=== PATIENT | male | born 1965 | race African-American/Black ===

== ENCOUNTER 2019-02-25 17:33 | Emergency (ER) | payer OTHER ==
[~2019-02-25] VITALS: Ht 177.8 cm; Wt 60.8 kg
[2019-02-25 18:28] VITALS: BP 148/83
--- NOTE | 2019-02-25 19:07 | PHYS DOC ---
Past Medical History Past Medical History: High Cholesterol, Hypertension, Other Additional Past Medical Histor: PTSD, OCD, MDD Past Surgical History: No Surgical History Alcohol Use: Occasionally Drug Use: None Adult General Chief Complaint Chief Complaint: MECHANICAL FALL HPI HPI Patient is a 53 year old male who presents with this morning was moving furniture in the back of a [employer] when he tripped and fell forward hitting his face into the back of the [employer]. Patient denies LOC, nausea, vomiting, dizziness, visual changes, numbness or tingling, neck pain, back pain, head pain, weaknesses. His glasses he was wearing cut into the bridge of his nose and he has a superficial cut to the bridge of his nose that is approximately 1 cm long with no depth. Patient states he is up-to-date on all of his immunizations. Review of Systems Review of Systems Musculoskeletal: Facial pain. Denies back pain or joint pain [] Integument: Facial bruising. Denies rash or skin lesions [] All other systems were reviewed and found to be within normal limits, except as documented in this note. Allergies Allergies Allergies Coded Allergies Type Severity Reaction Last Updated Verified lisinopril Allergy Intermediate 09/17/18 Yes prednisone Allergy Intermediate 09/17/18 Yes primidone Allergy Intermediate 09/17/18 Yes Physical Exam Physical Exam Constitutional: Well developed, well nourished, no acute distress, non-toxic appearance. [] HENT: Normocephalic, atraumatic, bilateral external ears normal, oropharynx moist, no oral exudates, nasal swelling and tenderness. [] Eyes: PERRLA, EOMI, conjunctiva normal, no discharge. [] Neck: Normal range of motion, no tenderness, supple, no stridor. [] Skin: Under right eye bruising and tenderness. Superficial cut to bridge of nose. Warm, dry, no erythema, no rash. [] Back: No tenderness, no CVA tenderness. [] Extremities: No tenderness, no cyanosis, no clubbing, ROM intact, no edema. [] Neurologic: Alert and oriented X 3, normal motor function, normal sensory function, no focal deficits noted. [] Psychologic: Affect normal, judgement normal, mood normal. [] Current Patient Data Vital Signs Vital Signs Date Time Temp Pulse Resp B/P (MAP) Pulse Ox O2 Delivery O2 Flow Rate FiO2 02/25/19 18:28 98.2 78 16 148/83 (104) 99 Room Air 98.2 EKG EKG [] Radiology/Procedures Radiology/Procedures [] Impressions: [facility] [address] [place] [address] IMAGING REPORT Signed PATIENT: ABDELRAHMAN GARCIA ACCOUNT: [id number] : 1965 LOCATION: ER AGE: 53 SEX: M EXAM STATUS: REG ER ORD. PHYSICIAN: LYNDSEY MARTINEZ APRN REASON: FALL, FACIAL BRUISING PROCEDURE: CT CERVICAL SPINE WO CONTRAST CT CERVICAL SPINE WO CONTRAST, CT HEAD AND MAXILLOFACIAL WO dated 02/25/2019 6:57 PM Indication: Pain after fall facial bruising.. Comparison: No comparison is available. Technique: Contiguous axial imaging of the head was performed from skull base to vertex. In addition, axial imaging of the maxillary facial bones and cervical spine performed with thin cut coronal and sagittal reconstruction. One or more of the following individualized dose reduction techniques were utilized for this examination: 1. Automated exposure control 2. Adjustment of the mA and/or kV according to patient size 3. Use of iterative reconstruction technique Findings: Ventricles and sulci are mildly prominent for age. No midline shift or mass effect. Minimal patchy low density in the deep/subcortical periventricular white matter. No hemorrhage or extra-axial collection. Posterior fossa and brainstem unremarkable. No apparent calvarial abnormality. Images of the maxillofacial bones show deformity of the bilateral nasal bones with probable acute fracture on the right. There is overlying soft tissue swelling. Nasal septum is slightly deviated. Orbital gaitan and maxillary gaitan are intact. Zygomatic arches and mandible are intact. Paranasal sinuses are clear. No air-fluid level or significant mucosal thickening. The ostiomeatal units and infundibula are patent. No significant soft tissue abnormality. Images of the cervical spine were acquired from skull base to mid T2. Sagittal alignment is anatomic. Vertebral body heights are maintained. No prevertebral soft tissue swelling. Posterior elements are intact. No evidence of fracture. Mild to moderate endplate hypertrophic changes throughout. There is ossification of the posterior longitudinal ligament at the C5-C6 level. Mild multilevel uncovertebral hypertrophic changes and facet arthropathy. There is mild central stenosis at C5-C6 with varying degrees of mild foraminal narrowing throughout. Visualized soft tissue structures unremarkable. Limited images of lung apices show mild emphysema. IMPRESSION: 1. No evidence of acute intracranial hemorrhage or mass. 2. Mild atrophy for age. 3. Bilateral nasal bone fractures, mildly displaced on the right. 4. Paranasal sinuses are clear. 5. No evidence of cervical spine fracture or malalignment. 6. Mild multilevel cervical spondylosis. Electronically signed by: Abdelrahman Rayo MD (02/25/2019 8:04 PM) [facility] DICTATED and SIGNED BY: ABDELRAHMAN RAYO MD DATE: 02/25/192003 Course & Med Decision Making Course & Med Decision Making His glasses he was wearing cut into the bridge of his nose and he has a superficial cut to the bridge of his nose that is approximately 1 cm long with no depth. Patient states he is up-to-date on all of his immunizations. Alert and oriented. Speaks in full clear sentences. Ambulatory with a steady gait. Full range of motion of his neck and has no focal spine he bone tenderness to the cervical spine, thoracic spine, lumbar spine. PERRLA. Has equal director chemistry and strength in all extremities. Skin pink warm and dry. Patient has nasal swelling with tenderness with palpation but it is aligned there is no deformity seen. Patient has a area of bruising under the right eye with tenderness with palpation. Patient has no other tenderness or bruising to his face. No dental or mouth damage. Patient did not bite his tongue. Tympanic are intact and pearly white. Patient states he can breathe out of his nose. CT shows IMPRESSION: 1. No evidence of acute intracranial hemorrhage or mass. 2. Mild atrophy for age. 3. Bilateral nasal bone fractures, mildly displaced on the right. 4. Paranasal sinuses are clear. 5. No evidence of cervical spine fracture or malalignment. 6. Mild multilevel cervical spondylosis. I have discussed findings with Dr Haynes and patient is to follow up ENT as soon as possible. Dragon Disclaimer Moeon Disclaimer This electronic medical record was generated, in whole or in part, using a voice recognition dictation system. Departure Departure Impression: Primary Impression: Fall Additional Impression: Nasal bone fracture Disposition: 01 HOME, SELF-CARE Condition: STABLE Referrals: YOSEPH MOLINA APRN (PCP) MICHELLE LAW MD Patient Instructions: Nasal Fracture, [id number] Additional Instructions: Follow up with ENT as soon as possible. Use ice and heating pads to help with pain also. Scripts Hydrocodone/Apap 5-325 (NORCO 5-325 TABLET) 1 Each Tablet 1 TAB PO PRN Q6HRS PRN for PAIN, #8 TAB 0 Refills Prov: LYNDSEY MARTINEZ APRN 02/25/19 Problem Qualifiers Primary Impression: Fall Encounter type: initial encounter Qualified Codes: W19.XXXA - Unspecified fall, initial encounter Additional Impression: Nasal bone fracture Encounter type: initial encounter Fracture type: closed Qualified Codes: S02.2XXA - Fracture of nasal bones, initial encounter for closed fracture LYNDSEY MARTINEZ APRN Feb 25, 2019 19:07
--- NOTE | 2019-02-25 20:07 | RAD ---
CT CERVICAL SPINE WO CONTRAST, CT HEAD AND MAXILLOFACIAL WO dated 02/25/2019 6:57 PM Indication: Pain after fall facial bruising.. Comparison: No comparison is available. Technique: Contiguous axial imaging of the head was performed from skull base to vertex. In addition, axial imaging of the maxillary facial bones and cervical spine performed with thin cut coronal and sagittal reconstruction. One or more of the following individualized dose reduction techniques were utilized for this examination: 1. Automated exposure control 2. Adjustment of the mA and/or kV according to patient size 3. Use of iterative reconstruction technique Findings: Ventricles and sulci are mildly prominent for age. No midline shift or mass effect. Minimal patchy low density in the deep/subcortical periventricular white matter. No hemorrhage or extra-axial collection. Posterior fossa and brainstem unremarkable. No apparent calvarial abnormality. Images of the maxillofacial bones show deformity of the bilateral nasal bones with probable acute fracture on the right. There is overlying soft tissue swelling. Nasal septum is slightly deviated. Orbital gaitan and maxillary gaitan are intact. Zygomatic arches and mandible are intact. Paranasal sinuses are clear. No air-fluid level or significant mucosal thickening. The ostiomeatal units and infundibula are patent. No significant soft tissue abnormality. Images of the cervical spine were acquired from skull base to mid T2. Sagittal alignment is anatomic. Vertebral body heights are maintained. No prevertebral soft tissue swelling. Posterior elements are intact. No evidence of fracture. Mild to moderate endplate hypertrophic changes throughout. There is ossification of the posterior longitudinal ligament at the C5-C6 level. Mild multilevel uncovertebral hypertrophic changes and facet arthropathy. There is mild central stenosis at C5-C6 with varying degrees of mild foraminal narrowing throughout. Visualized soft tissue structures unremarkable. Limited images of lung apices show mild emphysema. IMPRESSION: 1. No evidence of acute intracranial hemorrhage or mass. 2. Mild atrophy for age. 3. Bilateral nasal bone fractures, mildly displaced on the right. 4. Paranasal sinuses are clear. 5. No evidence of cervical spine fracture or malalignment. 6. Mild multilevel cervical spondylosis. Electronically signed by: Abdelrahman Rayo MD (02/25/2019 8:04 PM) [facility]
[2019-02-25] MEDS ORDERED: HYDR-3164 PO (20:29)
== END 2019-02-25 20:40 | disposition home or self-care (01) ==
LOC: ER 17:33
DX: S02.2XXA Fracture of nasal bones, initial encounter for closed fracture (principal); E78.00 Pure hypercholesterolemia, unspecified; I10 Essential (primary) hypertension; F43.10 Post-traumatic stress disorder, unspecified; Z88.8 Allergy status to other drugs, medicaments and biological substances; W01.0XXA Fall on same level from slipping, tripping and stumbling without subsequent striking against object, initial encounter; Y93.89 Activity, other specified; Y92.89 Other specified places as the place of occurrence of the external cause; Y99.8 Other external cause status
CPT/HCPCS: 70450; 70486; 72125; 99284-25